=== PATIENT | female | born 1985 | race Caucasian/White ===

== ENCOUNTER 2024-01-05 23:26 | Emergency (ER) | payer OTHER, SELFPAY ==
[2024-01-05 23:30] VITALS: BP 132/92
[2024-01-05 23:31] VITALS: BP 132/92
[2024-01-05 23:47] VITALS: BMI 24.7
[2024-01-05 23:47] LABS: % Basophils 0.2 % (0-2); % Eosinophils 3.2 % (0-6); % Immature Granulocytes 0.2 % (0-0.5); % Lymphocytes 37.5 % (20.5-51.1); % Monocytes 6.7 % (1.7-9.3); % Neutrophils 52.2 % (42.2-75.2); Absolute Eosinophils 0.3 10^3/uL (0-0.7); Absolute Lymphocytes 3.3 10^3/uL (1.2-3.4); Absolute Monocytes 0.6 10^3/uL (0.1-0.6); Absolute Neutrophils 4.6 10^3/uL (1.4-6.5); Hematocrit 32.6 % (37.0-47.0); Hemoglobin 11.1 g/dL (12.0-16.0); Mean Corpuscular Hgb 28.8 pg (27.0-31.0); Mean Corpuscular Volume 84.5 fL (81.0-99.0); Mean Platelet Volume 8.5 fL (7.4-10.4); Nucleated Red Blood Cells % 0 %; Platelet Count 263 10^3/uL (130-400); Red Blood Cell Count 3.86 10^6/uL (4.20-5.40); Red Cell Dist. Width 15.8 % (11.5-14.5); White Blood Cell Count 8.8 10^3/uL (4.8-10.8)
[2024-01-06] VITALS: BP 131/84
[2024-01-06 00:08] LABS: ALT (SGPT) 20 U/L (0-35); AST (SGOT) 29 U/L (14-36); Albumin 4.2 g/dl (3.5-5.0); Alkaline Phosphatase 85 U/L (38-126); Blood Urea Nitrogen 7 mg/dl (7-17); Carbon Dioxide 24 mmol/L (22-30); Chloride 101 mmol/L (98-107); Estimated Creatinine Clearance 121 ml/min; Glucose 149 mg/dl (70-99); Potassium 3.8 mmol/L (3.5-5.1); Sodium 138 mmol/L (135-145); Total Bilirubin 0.1 mg/dl (0.2-1.3); Total Protein 6.6 g/dl (6.3-8.2); eGFR > 60.00
[2024-01-06 00:16] LABS: HCG, Serum Qualitative Screen Negative
--- NOTE | 2024-01-06 00:39 | ED.GENMED ---
History of Present Illness
General
Chief Complaint: Seizure
Source: patient and family
Exam Limitations: none
Time Seen by Provider: 01/06/24 00:33
History of Present Illness
History of Present Illness:
See MDM
Past History
Past History
ED Past Medical History: Psychiatric (Anxiety, alcohol abuse)
ED Past Surgical History: Orthopedic (Bilateral foot surgery)
Social History
Tobacco: Non-smoker
Alcohol: None
Personal:
Living: with family
Family History
Family History: Other (Noncontributory)
Phy Exam
Physical Exam
Physical Exam:
See MDM
Course
Orders/Labs/Results
Orders:
Orders
01/05/24 23:38
Electrocardiogram (*1) Urgent
Reason for Study: Other
Other Reason for Exam: Possible Stroke
EKG- Treatment ONCE
Test Result ONCE
01/05/24 23:39
Complete Blood Count/With Diff Urgent
Comprehensive Metabolic Panel Urgent
HCG, Serum Qualitative Screen Urgent
Comment: Notify provider if positive test present
01/06/24 00:[address] [CT Head W/o Iv Contrast] Urgent
Comment:
Reason For Exam: new onset seizure/fall
01/06/24 00:39
0.9% Sodium Chloride 1000 ml [Nss] 1,000 ml IV BOLUS
Alprazolam [Xanax] 0.5 mg PO NOW STA
Abnormal Lab Results
01/05/24
23:39
RBC 3.86 L 10^6/uL
(4.20-5.40)
Hgb 11.1 L g/dL
(12.0-16.0)
Hct 32.6 L %
(37.0-47.0)
RDW 15.8 H %
(11.5-14.5)
Glucose 149 H mg/dl
(70-99)
Total Bilirubin 0.1 L mg/dl
(0.2-1.3)
01/05/24 23:39
01/05/24 23:39
Vital Signs
Initial and Last Documented VS:
Initial Vital Signs
Temp Pulse Resp BP Pulse Ox
98.2 F 112 15 132/92 95
01/05/24 23:30 01/05/24 23:30 01/05/24 23:30 01/05/24 23:30 01/05/24 23:30
Last Documented Vital Signs
Temp Pulse Resp BP Pulse Ox
98.2 F 94 20 126/90 97
01/05/24 23:30 01/06/24 01:15 01/06/24 01:15 01/06/24 01:00 01/06/24 01:15
MDM/Problems Addressed
Differential Diagnosis Includes:
HPI and MDM Narrative:
38-year-old female presenting for evaluation for possible seizure. Per patient, she stood up to go to the microwave. She remembers putting her food in and then remembers waking up on the floor with her mother in front of her. Per triage note,
mother described tonic-clonic like seizure. I spoke to the father who is also there. He states it was nothing to the extent of full body shaking.
When patient woke up, she was dazed and confused for a few seconds but there was no postictal period. Patient denies biting her lips or tongue and denies urinating on herself. Patient states she has not eaten or drank all day today. Upon further
questioning, she also did not take any of her scheduled 0.5 mg Xanax 3 times daily.
On exam, she is well-appearing and nontoxic. Will give dose of Xanax. Will give IV fluids. We discussed likely myoclonic syncope rather than true seizure
Physical exam
General: Well appearing and non-toxic
HEENT: protecting airway. No tongue bite
Neck: appears supple
CV: No evidence of cyanosis. Regular rate and rhythm
Resp: No accessory muscle use
Abd: Non-distended
Extremities: No deformities
Neuro: alert
Psych: Normal affect
Skin: Intact
Problems Addressed including Acute and Chronic Conditions affecting care:
1. Myoclonic syncope
Acuity: acute
Prognosis: stable
Details: Likely in the setting of dehydration and possibly missing Xanax dosing. Without tongue bite or self urination, doubt tonic-clonic seizure
Updates
CT head negative. Discussed follow-up with PCP and neurology. Discussed no driving until cleared by either 1
Differential Diagnosis (but not limited to): Dehydration, myoclonic syncope, seizure, benzodiazepine withdrawal
Testing considered: UDS
Drug therapy (if applicable): OTC meds, please see d/c instruction regarding Rx drugs
Amount and/or Complexity of Data Reviewed
Clinical info obtained from: Patient
External data reviewed: N/A
Labs I independently reviewed (but not limited to): Electrolytes normal
Radiology: The CT scan was personally and independently reviewed. In addition, official CT report reviewed.
Pulse Ox: not hypoxic
EKG independently reviewed: Sinus tachycardia, normal axis, no STEMI
Heating Repair Technician: N/A
Critical Care: N/A
Risk of Complication:
Social Determinants of health: Good social support
Discussed with other providers: N/A
Escalation of Care includes Admit/Obs: After being observed in the Emergency Department, pt stable for discharge.
Occasional wrong word or 'sound a like' substitutions may have occurred due to the inherent limitations of voice recognition software. Read the chart carefully and recognize, using context, where substitutions have occurred.
*Critical Care Note
Total Time (30-74mins, 75-104mins- exclusive of procedures): Not Applicable
ED Attending Note
-
Portions of this chart may have been created with voice recognition software.� Occasional wrong word or��sound alike� substitutions may have occurred due to the inherent limitations of voice recognition software.
Discharge Plan
Departure
Patient Disposition: Home (Routine Discharge)
Date of Disposition: 01/06/24
Time of Disposition: 02:13
Patient with high blood pressure during this ER visit?: No
Discharge Problem:
Syncope, Myoclonus
Instructions: Syncope (Fainting) (DC)
Prescriptions:
No Action
alprazolam 0.5 MG tablet
0.5 mg PO TID
Control
1 tab PO DAILY
bupropion HCl [Wellbutrin SR] 150 MG tablet sustained-release 12 hr
150 mg PO DAILY
diphenhydramine HCl [Banophen] 25 MG capsule
25 mg PO HSPRN PRN (Reason: allergies)
ibuprofen 200 MG tablet
200 mg PO Q6HPRN PRN (Reason: pain)
albuterol sulfate 1 PUFF HFA aerosol inhaler
1 puff inhalation R Q4HPRN PRN (Reason: allergies)
acetaminophen [Tylenol] 325 MG capsule
325 mg PO DAILY PRN (Reason: pain)
sulfamethoxazole-trimethoprim [Bactrim DS] 800-160 mg tablet
1 tab PO BID Qty: 20 0RF
Referrals:
Sebastien Yee DO [Family Provider] -
Sushant Knapp MD [Active] -
Activity Restrictions/Additional Instructions:
Please return for any worsening symptoms.
You may return at any time if you have further concerns.
Please follow up with your doctor at the first available appointment, preferably this week.
Please make an appointment to see the neurologist.
Please avoid driving a car until cleared by your doctor or the neurologist.
Interventions
Interventions:
*Risk Screen - Suicide Last Done: 01/05/24 23:30
*General Assessment Last Done: 01/05/24 23:30
*Neglect/Abuse Screening Last Done: 01/05/24 23:30
*ED COVID-19 Vaccine History Last Done: 01/05/24 23:40
ED- Cardiac Assessment Last Done: 01/05/24 23:42
ED- Neurological Assessment Last Done: 01/05/24 23:45
ED- Pulmonary Assessment Last Done: 01/05/24 23:42
Discharge Date and Time
Print Language: HUNGARIAN
[2024-01-06] MEDS: NSS 1000 IV (00:53)
[2024-01-06] MEDS: XANAX 0.5 MG PO (00:53)
[2024-01-06 01:00] VITALS: BP 126/90
== END 2024-01-06 02:36 | disposition home or self-care (01) ==
LOC: EMR 23:26
PROVIDERS: Emergency Medicine; EMERGENCY PHYSICIAN Student in an Organized Health Care Education/Training Program; FAMILY PHYSICIAN Family Medicine
DX: G25.3 Myoclonus (principal); R55 Syncope and collapse
CPT/HCPCS: 99285; 70450; 80053; 84703; 85025; 93005